=== PATIENT | male | born 1960 | race Caucasian/White ===

== ENCOUNTER 2020-09-22 07:38 | Day surgery (SDC) | payer BC ==
[2020-09-22] MEDS ORDERED: Propofol 200 MG/20 ML SDV IV ONE (07:39)
[2020-09-22] MEDS ORDERED: Midazolam 1 MG/ML 2 ML SDV IV ONE (07:39)
[2020-09-22] MEDS ORDERED: Sodium Chloride 0.9% 10 ML Syringe FLUSH PRN (08:45)
[2020-09-22] MEDS ORDERED: Lactated Ringers 1,000 ML IV SCH (08:45)
[2020-09-22] MEDS ORDERED: Propofol 200 MG/20 ML SDV ONE (11:36)
[2020-09-22] MEDS ORDERED: Midazolam 1 MG/ML 2 ML SDV ONE (11:36)
--- NOTE | 2020-09-22 12:18 | PCM.OPNOTE ---
- General Post-Op/Procedure Note Date of Surgery/Procedure: 09/22/20 Operative Procedure(s): Colonoscopy Findings: Multiple diverticuli in the sigmoid colon, otherwise negative. Pre Op Diagnosis: Screening colonoscopy. Family history of colon carcinoma. Post-Op Diagnosis: Same, multiple diverticuli of the sigmoid colon. Anesthesia Technique: MAC Primary Surgeon: Louise Mcdowell Condition: Good Free Text/Narrative:: INFORMED CONSENT: Patient is here today for elective colonoscopy. All aspects of this procedure have been discussed with the patient. All possible complications also, including possibility of perforation, infection, pain, bleeding and unknown complications. In the event of perforation patient may need to have abdominal exploration, colon resection, colostomy and even was discussed. Anesthetic complications were handled by anesthesia department. The patient understands fully well. Patient did not have any further questions for me at the end of my interview. The patient wishes for me to proceed. PREOPERATIVE DIAGNOSIS/INDICATIONS: [Screening colonoscopy, family history of colon carcinoma.] POSTOPERATIVE DIAGNOSIS: [Multiple diverticulosis of the sigmoid colon, otherwise negative.] INSTRUMENT USED: Olympus videocolonoscope. ASA CLASSIFICATION: [2] ANESTHESIA: Continuous EKG, oximetry and intermittent blood pressure and respiratory monitoring were performed throughout the procedure. IV Versed and Fentanyl were administered. PROCEDURE PERFORMED: Colonoscopy POSITIONS OF PATIENT: Left lateral. RECTUM: Normal. SIGMOID COLON: Small diverticuli noted of the sigmoid colon.. DESCENDING COLON: A few diverticuli noted. SPLENIC FLEXURE: Normal. TRANSVERSE COLON: Normal. HEPATIC FLEXURE: Normal. ASCENDING COLON: Normal. CECUM: Normal. ILEOCECAL VALVE: Normal. BIOPSY: None. TOLERANCE: Excellent. COMPLICATIONS: None.
== END 2020-09-22 12:56 | disposition home or self-care (01) ==
LOC: KA.SDS 07:38
PROVIDERS: ATTEND Family Medicine
DX: Z12.11 Encounter for screening for malignant neoplasm of colon (principal); K57.30 Diverticulosis of large intestine without perforation or abscess without bleeding; R35.0 Frequency of micturition; G47.33 Obstructive sleep apnea (adult) (pediatric); N18.9 Chronic kidney disease, unspecified; K21.9 Gastro-esophageal reflux disease without esophagitis; Z80.0 Family history of malignant neoplasm of digestive organs; Z86.010 Personal history of colon polyps; Z79.899 Other long term (current) drug therapy
CPT/HCPCS: 00812; J2250; J2704; J7120